=== PATIENT | male | born 1940 | race Caucasian/White ===

== ENCOUNTER 2017-11-16 22:47 | Emergency (ER) | payer OTHER, MEDICAID ==
[~2017-11-16] VITALS: Ht 170.2 cm; Wt 73.0 kg
[2017-11-16] MEDS ORDERED: LEVOFLOXACIN 750MG PREMIX 150 ML IV ONE (23:15)
[2017-11-16] MEDS ORDERED: IPRATROPIUM BROMIDE (0.02%) 0.5MG/2.5ML NEB HHN STA (23:16)
[2017-11-16] MEDS ORDERED: ALBUTEROL (0.083%) 2.5MG/3ML NEB HHN STA (23:16)
[2017-11-16] MEDS ORDERED: SODIUM CHLORIDE 0.9% 500 ML IV ONE (23:16)
[2017-11-16] MEDS ORDERED: METHYLPREDNISOLONE SOD SUCC 125 MG/2 ML VIAL IV STA (23:16)
[2017-11-16] MEDS ORDERED: MAGNESIUM 2 G PREMIX 50 ML IV ONE (23:30)
[2017-11-16 23:57] LABS: BG BASE EXCESS 1.8 mmol/L (-2.0-2.0); BG CARBOXYHEMOGLOBIN 0.3 % (0.5-1.5); BG DEOXYHEMOGLOBIN 1.5 % (0.0-5.0); BG FRACTION INSPIRED OXYGEN 28; BG HCO3 ACT 24.4 mmol/L (22.0-26.0); BG METHEMOGLOBIN 0.1 % (0.0-1.5); BG OXYGEN SATURATION 98.5 % (92.0-98.5); BG OXYHEMOGLOBIN 98.1 % (94.0-97.0); BG PCO2 31.2 mmHg (35.0-45.0); BG PH 7.511 (7.350-7.450); BG PO2 134.3 mmHg (75.0-100.0); BG SAMPLE SITE LEFT RADIAL; BG TOTAL HEMOGLOBIN 10.1 g/dL (12.0-18.0); BG VENT MODE NASAL CANNULA
[2017-11-17 00:12] LABS: MEAN CORPUSCULAR HEMOGLOBIN 29.3 pg (28.0-32.0); MEAN PLATELET VOLUME 8.2 fl (7.4-10.4); PLATELET 247 x1000/uL (130-400); RED BLOOD CELL COUNT 3.06 mill/uL (4.7-6.1); RED CELL DISTRIBUTION WIDTH 15.6 % (11.6-14.6)
[2017-11-17 00:24] LABS: CHLORIDE 97 mEq/L (98-107); ETHANOL BLOOD < 10 mg/dL
[2017-11-17 00:25] LABS: INR 1.1; PROTHROMBIN TIME 11.9 sec (9.4-11.6)
[2017-11-17 00:43] LABS: PLATELET ESTIMATE NORMAL
[2017-11-17] MEDS ORDERED: KCL 20MEQ/100ML PREMIX 100 ML IV NR (00:45)
[2017-11-17] MEDS ORDERED: POTASSIUM BICARB/CIT ACID 25 MEQ TABLET.EFF PO ONE (00:45)
[2017-11-17 01:15] LABS: CLARITY URINE CLEAR (CLEAR); COLOR URINE DARK YELLOW (YELLOW); KETONES URINE NEGATIVE (NEGATIVE); LEUKOCYTE ESTERASE URINE 1+ (NEGATIVE); NITRITE URINE NEGATIVE (NEGATIVE); OCCULT BLOOD URINE 1+ (NEGATIVE); PH URINE 7.5 (4.5-8.0); PROTEIN URINE TRACE (NEGATIVE); SPECIFIC GRAVITY URINE 1.009 (1.005-1.030)
[2017-11-17 01:27] LABS: *AMPHETAMINES SCREEN URINE NEGATIVE (NEGATIVE); *BARBITURATES SCREEN URINE NEGATIVE (NEGATIVE); *BENZODIAZEPINES SCREEN URINE NEGATIVE (NEGATIVE); *COCAINE SCREEN URINE NEGATIVE (NEGATIVE); CANNABINOID URINE SCREEN NEGATIVE (NEGATIVE); METHADONE URINE SCREEN NEGATIVE (NEGATIVE); OPIATES URINE SCREEN PRESUMTIVE POSITIVE (NEGATIVE); PHENCYCLIDINE URINE SCREEN NEGATIVE (NEGATIVE)
[2017-11-17] MEDS ORDERED: SODIUM CHLORIDE 0.9% 1000ML BAG (SEPSIS BOLUS) IV NR (01:45)
[2017-11-17] MEDS ORDERED: MORPHINE SULFATE 2 MG/ML CPJ (NOT FOR IM USE) IV ONE (03:30)
[2017-11-17] MEDS ORDERED: LORAZEPAM 2MG/ML CPJ IV ONE (04:00)
[2017-11-17] MEDS ORDERED: LEVETIRACETAM 1000MG/100ML 100 ML IV NR (04:15)
[2017-11-17] MEDS ORDERED: ENOXAPARIN 40MG/0.4ML SYR SUBCUT SCH ×2 (06:30→12:30)
[2017-11-17] MEDS ORDERED: CLONIDINE 0.1MG TABLET PO PRN ×2 (06:30→18:30)
[2017-11-17] MEDS ORDERED: IPRATROPIUM/ALBUTEROL 0.5-3(2.5)MG/3ML NEB INH SCH ×2 (06:30→18:30)
[2017-11-17] MEDS ORDERED: ACETAMINOPHEN 650MG SUPP PR PRN (06:30)
[2017-11-17] MEDS ORDERED: ONDANSETRON HCL 4MG/2ML VIAL IV PRN (06:30)
[2017-11-17] MEDS ORDERED: NA PHOS,M-B/NA PHOS,DI-BA ENEMA 118ML PR PRN (06:30)
[2017-11-17] MEDS ORDERED: MAGNESIUM/ALUMINUM HYDROXIDE/SIMETHICONE 30ML UDC PO PRN (06:30)
[2017-11-17] MEDS ORDERED: LEVOFLOXACIN 500MG PREMIX 100 ML IV SCH ×2 (06:30→12:30)
[2017-11-17] MEDS ORDERED: DIPHENHYDRAMINE 50MG/ML VIAL IV PRN ×2 (06:30→12:30)
[2017-11-17] MEDS ORDERED: IPRATROPIUM/ALBUTEROL 0.5-3(2.5)MG/3ML NEB INH PRN (06:30)
[2017-11-17] MEDS ORDERED: LEVETIRACETAM 500MG PREMIX 100 ML IV ONE (06:30)
[2017-11-17 07:08] LABS: HEMATOCRIT. 27.3 % (42.0-52.0); MEAN CORPUSCULAR HEMOGLOBIN 29.1 pg (28.0-32.0); MEAN CORPUSCULAR VOLUME 88.4 fL (80.0-94.0); PLATELET 216 x1000/uL (130-400); RED BLOOD CELL COUNT 3.09 mill/uL (4.7-6.1); RED CELL DISTRIBUTION WIDTH 15.6 % (11.6-14.6)
[2017-11-17 07:10] LABS: CHLORIDE 100 mEq/L (98-107)
[2017-11-17 08:01] LABS: NUCLEATED RED BLOOD CELLS 1 /100 WBC; PLATELET ESTIMATE NORMAL
[2017-11-17] MEDS ORDERED: POTASSIUM CHLORIDE INJ 40 MEQ in DEXT 5% WATER 500 ML IV NR (10:15)
[2017-11-17 11:50] VITALS: BP 133/85
[2017-11-17] MEDS ORDERED: SODIUM CHLORIDE 0.9% INJ 3ML FLUSH IVF SCH ×2 (14:00→14:15)
[2017-11-17] MEDS ORDERED: LEVETIRACETAM 1000MG/100ML 100 ML IV SCH (18:00)
== END 2017-11-17 12:19 | disposition left against medical advice (07) ==
LOC: ER 23:02 → EDBEDREQDT 11-17 01:48 → EDBEDREQ 11-17 01:48 → EDBEDREQTM 11-17 01:48 → CANBEDREQ 11-17 12:09 → ER 11-17 12:19
DX: A41.9 Sepsis, unspecified organism (principal); N39.0 Urinary tract infection, site not specified; E87.6 Hypokalemia; E87.2 Acidosis; R56.9 Unspecified convulsions; R55 Syncope and collapse; J45.909 Unspecified asthma, uncomplicated; I25.10 Atherosclerotic heart disease of native coronary artery without angina pectoris; I67.82 Cerebral ischemia; J90 Pleural effusion, not elsewhere classified; C79.51 Secondary malignant neoplasm of bone; C61 Malignant neoplasm of prostate; S22.31XA Fracture of one rib, right side, initial encounter for closed fracture; G20 Parkinson's disease; Z95.1 Presence of aortocoronary bypass graft; Z93.6 Other artificial openings of urinary tract status; Z74.01 Bed confinement status; Z85.46 Personal history of malignant neoplasm of prostate; Z91.14 Patient's other noncompliance with medication regimen; Z90.49 Acquired absence of other specified parts of digestive tract
CPT/HCPCS: 36415; 36600; 70450; 71045; 74176; 80053; 80305; 81003; 82375; 82805; 82962; 83605; 83690; 83735; 83880; 84484; 85025; 85610; 87040; 87086; 87804; 93005; 94640; 96365; 96366; 96367; 96375; 99291; G0482; J1953; J1956; J2060; J2930; J3475; J3480; J7030; J7040; J7611; J7060

== ENCOUNTER 2018-01-02 03:45 | Emergency (ER) | payer MEDICARE, MEDICAID ==
[~2018-01-02] VITALS: Ht 162.6 cm; Wt 59.0 kg
[2018-01-02] MEDS ORDERED: SODIUM CHLORIDE 0.9% 1,000 ML IV ONE ×2 (05:08→07:34)
[2018-01-02 06:48] LABS: BASOPHILS % 1.3 % (0.0-2.0); EOSINOPHILS % 1.2 % (0.0-5.0); HEMATOCRIT. 28.3 % (42.0-52.0); HEMOGLOBIN. 10.3 g/dL (14.0-18.0); LYMPHOCYTES % 24.3 % (20.0-50.0); MEAN CORPUSCULAR VOLUME 93.9 fL (80.0-94.0); MEAN PLATELET VOLUME 6.2 fl (7.4-10.4); MONOCYTES % 8.7 % (2.0-8.0); NEUTROPHILS % 64.5 % (40.0-76.0); PLATELET 343 x1000/uL (130-400); RED BLOOD CELL COUNT 3.01 mill/uL (4.7-6.1); RED CELL DISTRIBUTION WIDTH 20.9 % (11.6-14.6)
[2018-01-02 06:49] LABS: CLARITY URINE CLOUDY (CLEAR); COLOR URINE DARK YELLOW (YELLOW); KETONES URINE NEGATIVE (NEGATIVE); LEUKOCYTE ESTERASE URINE 3+ (NEGATIVE); NITRITE URINE NEGATIVE (NEGATIVE); OCCULT BLOOD URINE 1+ (NEGATIVE); PH URINE 6.5 (4.5-8.0); PROTEIN URINE 1+ (NEGATIVE); SPECIFIC GRAVITY URINE 1.017 (1.005-1.030)
[2018-01-02 06:52] LABS: CHLORIDE 89 mEq/L (98-107)
[2018-01-02 06:57] LABS: PROTHROMBIN TIME 10.5 sec (9.4-11.6)
[2018-01-02 07:59] LABS: ETHANOL BLOOD < 10 mg/dL
[2018-01-02 08:48] VITALS: BP 147/72
[2018-01-02 08:48] LABS: *BARBITURATES SCREEN URINE NEGATIVE (NEGATIVE)
[2018-01-02 08:49] LABS: *AMPHETAMINES SCREEN URINE NEGATIVE (NEGATIVE); *BENZODIAZEPINES SCREEN URINE NEGATIVE (NEGATIVE); *COCAINE SCREEN URINE NEGATIVE (NEGATIVE)
[2018-01-02 08:50] LABS: CANNABINOID URINE SCREEN NEGATIVE (NEGATIVE); METHADONE URINE SCREEN NEGATIVE (NEGATIVE); OPIATES URINE SCREEN PRESUMTIVE POSITIVE (NEGATIVE); PHENCYCLIDINE URINE SCREEN NEGATIVE (NEGATIVE)
== END 2018-01-02 08:49 | disposition home or self-care (01) ==
LOC: ER 03:45
DX: E87.1 Hypo-osmolality and hyponatremia (principal); D64.9 Anemia, unspecified; R41.0 Disorientation, unspecified; G20 Parkinson's disease; Z85.46 Personal history of malignant neoplasm of prostate
CPT/HCPCS: 36415; 70450; 71045; 80053; 80305; 81003; 83605; 83690; 83880; 84484; 85025; 85610; 87077; 87086; 87186; 93005; 96360; 96361; 99285; G0482; J7030